=== PATIENT | male | born 1990 | race Hispanic/Latino ===

== ENCOUNTER → 2022-09-16 | Outpatient (CLI) | payer OTHER | LOC: M CARPUL 13:54 | PROVIDERS: ATTEND Internal Medicine Pulmonary Disease | DX: R06.02 Shortness of breath (principal) ==

== ENCOUNTER → 2022-09-23 | Outpatient (CLI) | payer OTHER ==
[~2022-09-23] MED LIST: METHACHOLINE KIT INH ONE
== END ==
LOC: EDUNIT# 09-16 14:00 → M CARPUL 13:50
PROVIDERS: ATTEND Internal Medicine Pulmonary Disease
DX: R06.02 Shortness of breath (principal)

== ENCOUNTER 2024-04-16 09:21 | Day surgery (SDC) | payer OTHER ==
[~2024-04-16] VITALS: Ht 162.6 cm; Wt 97.4 kg
[~2024-04-16 09:21] MED LIST changes: +ALBU8.5H INH; -METHACHOLINE KIT INH ONE; +OMEP40CA5 PO; +SUMA100T2 PO; +ZOLO25TA PO
[2024-04-16] MEDS ORDERED: fentaNYL 100 MCG/2 ML INJECTION As Ordered ONE (10:46)
[2024-04-16] MEDS ORDERED: propofoL 200 MG/20 ML VIAL As Ordered ONE (10:46)
[2024-04-16] MEDS ORDERED: LIDOCAINE 2% 100MG/5ML SDV (FOR ANES.) As Ordered ONE (10:46)
[2024-04-16 11:00] VITALS: TEMP 97.6
[2024-04-16 11:15] VITALS: BP 143/93; O2SAT 96
== END 2024-04-16 11:19 | disposition home or self-care (01) ==
LOC: M OPP 09:21
PROVIDERS: ATTEND Internal Medicine Gastroenterology
DX: R12 Heartburn (principal); R14.0 Abdominal distension (gaseous); G47.30 Sleep apnea, unspecified; Z79.899 Other long term (current) drug therapy
CPT/HCPCS: 43239; 88305; J3010